=== PATIENT | male | born 1995 | race Caucasian/White ===

== ENCOUNTER 2019-05-03 13:27 | Emergency (ER) | payer OTHER, SELFPAY ==
[2019-05-03 13:34] VITALS: BP 156/89; PULSE 96; RESP 16; TEMP 37.4; O2SAT 98; BMI 31.0
--- NOTE | 2019-05-03 13:49 | DI.RAD.S_ITS ---
PROCEDURE: XR CHEST 2V INDICATIONS: cough, sob temps TECHNIQUE: 2 views of the chest were acquired. COMPARISON: None. FINDINGS: Surgical changes and devices: None. Lungs and pleura: Lungs are clear. No pleural effusions or pneumothorax. Mediastinum: Mediastinal contours are normal. Heart size is normal. Bones and chest wall: No suspicious bony abnormalities. Soft tissues appear unremarkable. IMPRESSION: Normal for age, source of current cough symptoms is not seen. Dictated by: Doug Oleary M.D. on 05/03/2019 at 14:25 Approved by: Doug Oleary M.D. on 05/03/2019 at 14:25
--- NOTE | 2019-05-03 13:56 | ED.SOB ---
HPI - SOB/Dyspnea <HENOK Thomas- - Last Filed: 05/03/19 17:53> General Chief Complaint: Shortness of Breath/Dyspnea Stated Complaint: shortness of breath/fluid in lungs Time Seen by Provider: 05/03/19 13:39 Source: patient and family Mode of arrival: ambulatory Limitations: no limitations History of Present Illness The patient is a 23-year-old male nonsmoker with history of asbestos exposure who presents with a chief complaint of a cough and shortness of breath. He presents with his . They state it has been going on for at least 3-4 weeks He has tried multiple [id number] medications such as Mucinex, NyQuil etc. He complains of shaking chills and low-grade fevers. He denies any vomiting or diarrhea. He denies any chest pain, but complains of tightness when coughing only. He denies any recent trauma. He states he has a long history of respiratory issues stemming from asbestos exposure,, was [facility] and the . 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 Related Data Previous Rx's Medication Instructions Recorded azithromycin See Rx Instructions .ROUTE 05/03/19 .COMPLEX #6 tab benzonatate [Tessalon Perles] 200 mg PO BID PRN #30 cap 05/03/19 Allergies Allergy/AdvReac Type Severity Reaction Status Date / Time No Known Drug Allergies Allergy Verified 05/03/19 13:34 Review of Systems <BERTHA Thomas - Last Filed: 05/03/19 17:53> Review of Systems GENERAL: Denies chills, fatigue, malaise, fever, sweats. HEENT: Denies sinus pain, ear pain, sore throat, difficulty swallowing, dizziness. RESPIRATORY: See HPI CARDIOVASCULAR: Denies chest pain, palpitations, orthopnea, edema, GASTROINTESTINAL: Denies nausea, vomiting, abdominal pain, diarrhea, constipation, melena. : Denies dysuria, frequency, incontinence, hematuria, urinary retention. MUSCULOSKELETAL: denies weakness, joint pain, or bony pain SKIN: Denies rash, skin lesions, or other NEUROLOGIC: Denies weakness, headache, numbness, change in speech, confusion, seizures, incoordination. PSYCHIATRIC: No concerning psychosocial issues. 12 point review of systems is negative except for those stated above PFSH <TIMBO Thomas - Last Filed: 05/03/19 17:53> Social History Smoking Status: Never smoker Social History Smoking Status: Never smoker Exam <TIMBO Thomas - Last Filed: 05/03/19 17:53> Narrative Exam Narrative: GENERAL: This is a well-nourished, well-developed patient, no acute distress HEAD: Atraumatic. Normocephalic. No temporal or scalp tenderness. EYES: Pupils equal round and reactive. Extraocular motions intact. No scleral icterus. No injection or drainage. ENT: Nose without bleeding, purulent drainage or septal hematoma. Throat without erythema, tonsillar hypertrophy or exudate. Uvula midline. Airway patent. NECK: Trachea midline. No JVD or lymphadenopathy. Supple, nontender, no meningeal signs. CARDIOVASCULAR: Regular rate and rhythm RESPIRATORY: Clear to auscultation. Breath sounds equal bilaterally. No wheezes, rales, or rhonchi. Persistent dry cough during exam. GASTROINTESTINAL: Abdomen soft, non-tender, nondistended. No hepato-splenomegaly, or palpable masses. No guarding. Active bowel sounds all 4 quadrants. EXTREMITIES: No clubbing, cyanosis, or edema. No joint tenderness, effusion, or edema noted. BACK: Nontender without deformity or crepitance. No flank tenderness. NEURO: AOx3. SKIN: No rash or erythema. Initial Vital Signs Initial Vital Signs: Vital Signs Temperature 99.3 F 05/03/19 13:34 Pulse Rate 96 H 05/03/19 13:34 Respiratory Rate 16 05/03/19 13:34 Blood Pressure 156/89 H 05/03/19 13:34 Pulse Oximetry 98 05/03/19 13:34 <Barbara Patiño DO - Last Filed: 05/05/19 02:02> Initial Vital Signs Initial Vital Signs: Vital Signs Temperature 99.3 F 05/03/19 13:34 Pulse Rate 96 H 05/03/19 13:34 Respiratory Rate 16 05/03/19 13:34 Blood Pressure 156/89 H 05/03/19 13:34 Pulse Oximetry 98 05/03/19 13:34 Course <TIMBO Thomas - Last Filed: 05/03/19 17:53> Orders Ordered: Discontinued Medications Albuterol (Ventolin) 2.5 mg INH NOW ONE Stop: 05/03/19 14:30 Last Admin: 05/03/19 14:37 Dose: 2.5 mg Vital Signs - 8 hr 05/03/19 13:34 05/03/19 14:25 05/03/19 15:16 Temperature 99.3 F Pulse Rate 96 H 82 81 Respiratory Rate 16 16 14 Blood Pressure 156/89 H 146/65 H Pulse Oximetry 98 96 100 <Barbara Patiño DO - Last Filed: 05/05/19 02:02> Orders Ordered: Discontinued Medications Albuterol (Ventolin) 2.5 mg INH NOW ONE Stop: 05/03/19 14:30 Last Admin: 05/03/19 14:37 Dose: 2.5 mg Vital Signs - 8 hr 05/03/19 13:34 05/03/19 14:25 05/03/19 15:16 Temperature 99.3 F Pulse Rate 96 H 82 81 Respiratory Rate 16 16 14 Blood Pressure 156/89 H 146/65 H Pulse Oximetry 98 96 100 MDM - SOB/Dyspnea <TIMBO Thomas - Last Filed: 05/03/19 17:53> Imaging Data Chest x-ray: Radiologist's impression: [address] [address] XRay Report Signed Patient: Lucas Keating#: [id number] : 1995Acct:[id number] Age/Sex: 23 / MDate of Service: 05/03/19 Loc: ED Accession Number: [id number] Procedure: XR chest 2V Ordering Provider: Maki Anne PROCEDURE: XR CHEST 2V INDICATIONS: cough, sob temps TECHNIQUE: 2 views of the chest were acquired. COMPARISON: None. FINDINGS: Surgical changes and devices: None. Lungs and pleura: Lungs are clear. No pleural effusions or pneumothorax. Mediastinum: Mediastinal contours are normal. Heart size is normal. Bones and chest wall: No suspicious bony abnormalities. Soft tissues appear unremarkable. IMPRESSION: Normal for age, source of current cough symptoms is not seen. Dictated by: Doug Oleary M.D. on 05/03/2019 at 14:25 Approved by: Doug Oleary M.D. on 05/03/2019 at 14:25 ECG Data Interpretation: Sinus rhythm. Ventricular rate 89. No ST elevation or depression. No ectopy noted. NV interval 170. QRS 105. MDM Narrative Medical decision making narrative: The patient is a 23-year-old male who presents with a chief complaint of cough ongoing for the past several weeks. He also complains of some body aches and chills. 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 He has a clear chest x-ray however given the extended duration of his cough, as well as systemic symptoms including low-grade fevers, I will initiate treatment with azithromycin at this point time. There is a sputum culture pending if he needs further treatment. I discussed at length following up with his PCP. Discussed come back to the ER for any acute concerns such as increased shortness of breath, chest pain concern of heart attack or stroke. Patient was also given prescription of Tessalon Perles. Patient has no questions or concerns upon discharge and states understanding of return precautions as well as follow-up care. <Barbara Patiño, DO - Last Filed: 05/05/19 02:02> ECG Data Attestation: I personally reviewed and interpreted this ECG as follows: Prior ECG tracings: not available for review Interpretation: Normal sinus rhythm rate 89 P are interval 170 QTC 424 Discharge Plan Departure Patient Disposition: Home Clinical Impression: Acute lower respiratory infection Discharge Date/Time: 05/03/19 15:16 Interventions: ED Discharge Assessment Last Done: 05/03/19 15:16 Instructions: Acute Bronchitis (Alternative Therapy), DI for Acute Bronchitis Activity Restrictions/Additional Instructions: Please follow-up with primary care provider. Please come back to the emergency department for any acute concerns such as chest pain, concern of heart attack or stroke. Given the duration of your cough and systemic symptoms, I have elected to give you antibiotic treatment at this point time. I have also given her prescription of cough medicine. Please use lemon/honey etc as needed. Sputum culture will take 48-72 hours to result. Given your long duration of respiratory issues, you may benefit from a pulmonology evaluation or pulmonary function testing. Prescriptions: New azithromycin 250 mg tablet See Rx Instructions .ROUTE .COMPLEX Qty: 6 RF: 0 benzonatate [Tessalon Perles] 100 mg capsule 200 mg PO BID PRN (Reason: cough) Qty: 30 RF: 0 Referrals: [facility] [Provider Group] <Barbara Patiño, - Last Filed: 05/05/19 02:02> Cosign ED Attending Ifeoma Attestation: I was immediately available in the department for consultation. Documentation has been reviewed. I agree with assessment and plan.
[2019-05-03 14:25] VITALS: PULSE 82; RESP 16; O2SAT 96
[2019-05-03] MEDS: ALBUTEROL 2.5 MG/3 ML NEB (ADULT) INH (14:37)
[2019-05-03 15:16] VITALS: BP 146/65; PULSE 81; RESP 14; O2SAT 100
== END 2019-05-03 15:16 | disposition home or self-care (01) ==
PROVIDERS: Emergency Provider Nurse Practitioner Family
DX: J22 Unspecified acute lower respiratory infection (principal)
CPT/HCPCS: 71046; 87070; 87205; 93005; 93010; 94640; 99282; 99285; J7613